=== PATIENT | male | born 1955 | race Caucasian/White ===

== ENCOUNTER → 2016-11-15 | Outpatient (CLI) | payer OTHER ==
[~2016-11-15] MED LIST: ASPCH81X PO; ATOR-24 PO; DABI150C PO; DRON400T PO; MOME100A INH; TOBRSUS OPL; [UNRECOGNIZED DRUG - REMARK]; [UNRECOGNIZED DRUG - REMARK]
[2016-11-15 09:50] LABS: BASO ABS # 0.07 K/uL (0-0.2); COMPLETE YES; EOS % 8.7 %; HEMATOCRIT 41.4 % (42-52); IG% 0.1 %; LYMPH % 26.8 %; LYMPH ABS # 1.84 K/uL (1.2-3.4); MEAN CELL VOLUME 87.9 fL (80-100); MEAN CORPUSCULAR HEMOGLOBIN 29.3 pg (25-34); MEAN CORPUSCULAR HGB CONC 33.3 g/dl (32-36); MEAN PLATELET VOLUME 10.6 fL (7.4-10.4); MONO % 8.7 %; NEUT % 54.7 %; PLATELET COUNT 228 K/uL (130-400); RED BLOOD COUNT 4.71 M/uL (4.7-6.1); WHITE BLOOD COUNT 6.87 K/uL (4.8-10.8)
[2016-11-15 10:01] LABS: ALT/SGPT 35 U/L (12-78); AST/SGOT 20 U/L (15-37); BLOOD UREA NITROGEN 17 mg/dl (7-18); BUN/CREATININE RATIO 21.2 (10-20); CARBON DIOXIDE 25 mmol/L (21-32); CHLORIDE 109 mmol/L (98-107); CHOLESTEROL 131 mg/dl (0-200); CREATININE 0.82 mg/dl (0.60-1.40); GLUCOSE 94 mg/dl (70-99); POTASSIUM 4.1 mmol/L (3.5-5.1); SODIUM 141 mmol/L (136-145); TRIGLYCERIDES 71 mg/dl (0-150); VERY LOW DENSITY LIPOPROT CALC 14 mg/dl
[2016-11-15 10:05] LABS: CALCIUM 8.9 mg/dl (8.5-10.1)
[2016-11-15 10:11] LABS: CHOLESTEROL/HDL RATIO 2.7; HDL CHOLESTEROL 48 mg/dl; LDL CHOLESTEROL CALCULATED 69 mg/dl; PROSTATE SPECIFIC ANTIGEN 0.547 ng/ml (0.000-4.000)
[2016-11-15 10:19] LABS: ESTIMATED AVERAGE GLUCOSE 111 mg/dl; HA1C FLAG Normal (Normal)
== END | disposition home or self-care (01) ==
LOC: C.LAB1850 07:44
PROVIDERS: ATTEND Internal Medicine
DX: Z11.59 Encounter for screening for other viral diseases (principal); E78.00 Pure hypercholesterolemia, unspecified

== ENCOUNTER → 2017-05-23 | Outpatient (CLI) | payer OTHER ==
[~2017-05-23] VITALS: Ht 185.4 cm; Wt 105.6 kg
[~2017-05-23] MED LIST changes: +CEFAZOLIN 2000MG IV PUSH 10 ML IV SCH; +LACTATED RINGER'S 1000ML 1,000 ML IV SCH
[2017-05-23 10:53] VITALS: Ht 185.4 cm; Wt 105.6 kg
--- NOTE | 2017-05-23 11:31 | PAT Medication Instructions ---
Service Date May 23, 2017. Current Home Medication List Aspirin (Aspirin Chewable), 81 MG PO QAM Atorvastatin (Lipitor), 1 TAB PO QPM Dabigatran Etexilate Mesylate (Pradaxa), 1 CAP PO BID Dronedarone Hcl (Multaq), 1 TAB PO BID Mometasone Furoate-Formoterol (Dulera 100/5 Mcg), 2 PUFFS INH QAM Tobramycin/Dexamethasone 0.3% Oph (Tobradex 0.3% Oph), 1 DROP OPL QID [Inhaler For Travel], Unknown Dose [Meds For Travel] Medication Instructions For Your Scheduled Surgery - Per surgeon's instructions: Aspirin (Aspirin Chewable), 81 MG PO QAM Dabigatran Etexilate Mesylate (Pradaxa), 1 CAP PO BID - Take the following medications the morning of surgery with a sip of water OTHERWISE NOTHING TO EAT OR DRINK AFTER MIDNIGHT: Dronedarone Hcl (Multaq), 1 TAB PO BID Mometasone Furoate-Formoterol (Dulera 100/5 Mcg), 2 PUFFS INH QAM - Take the following medications as scheduled the night before surgery: Dronedarone Hcl (Multaq), 1 TAB PO BID Atorvastatin (Lipitor), 1 TAB PO QPM If you have any questions please call us at [phone] or [phone] or [phone]
== END | disposition home or self-care (01) ==
LOC: C.CPL 08:00 → EDSTATUS 06-03 09:01
PROVIDERS: ATTEND Surgery
DX: Z01.810 Encounter for preprocedural cardiovascular examination (principal); Z01.812 Encounter for preprocedural laboratory examination; R00.1 Bradycardia, unspecified

== ENCOUNTER → 2017-07-09 | Outpatient (CLI) | payer OTHER ==
[~2017-07-09] MED LIST changes: -CEFAZOLIN 2000MG IV PUSH 10 ML IV SCH; -LACTATED RINGER'S 1000ML 1,000 ML IV SCH
--- NOTE | 2017-07-09 15:45 | DIAGNOSTIC IMAGING REPORT ---
CHEST 2 VIEWS ROUTINE CLINICAL HISTORY: 61 years-old Male presenting with J45.909 Asthmatic [id number]. TECHNIQUE: PA and lateral views of the chest were obtained. COMPARISON: 01/18/2015. FINDINGS: Cardiomediastinal silhouette normal. Lungs and pleural spaces clear. Osseous structures normal. Upper abdomen normal. IMPRESSION: 1. No acute cardiopulmonary disease. Electronically signed by: Pacheco Melendez M.D. 07/09/2017 3:44 PM Dictated Date/Time: 07/09/2017 3:40 PM
== END | disposition home or self-care (01) ==
LOC: C.RAD1850 15:24
PROVIDERS: ATTEND Physician Assistant
DX: J45.909 Unspecified asthma, uncomplicated (principal)

== ENCOUNTER → 2017-08-19 | Outpatient (CLI) | payer OTHER ==
--- NOTE | 2017-08-19 12:51 | DIAGNOSTIC IMAGING REPORT ---
SINUSES MIN 3 VIEWS ROUTINE CLINICAL HISTORY: 61 years-old Male presenting with E78.00 [id number]. TECHNIQUE: 4 views of the sinuses were obtained. COMPARISON: None. FINDINGS: Bony nasal septum midline. No radiographic evidence of opacification of the paranasal sinuses or mastoid air cells. 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 Bony orbits intact. IMPRESSION: No radiographic evidence of acute sinusitis. Electronically signed by: Pacheco Melendez M.D. 08/19/2017 12:49 PM Dictated Date/Time: 08/19/2017 12:48 PM
== END | disposition home or self-care (01) ==
LOC: C.RAD1850 12:18
PROVIDERS: ATTEND Internal Medicine
DX: E78.00 Pure hypercholesterolemia, unspecified (principal)

== ENCOUNTER → 2017-08-30 | Outpatient (CLI) | payer OTHER | END | disposition home or self-care (01) | LOC: C.LABSPEC 13:33 | PROVIDERS: ATTEND Internal Medicine | DX: R05 Cough (principal) ==